=== PATIENT | female | born 1965 | race Caucasian/White ===

== ENCOUNTER 2017-09-16 18:46 | Emergency (ER) | payer OTHER ==
[2017-09-16] MEDS ORDERED: HYDROcodone/Acetaminophen 10/325 mg Tablet ONE (20:28)
[2017-09-16] MEDS ORDERED: Ibuprofen 800 MG TAB ONE (20:28)
--- NOTE | 2017-09-16 21:43 | RAD ---
LEFT FOREARM RADIOGRAPHS TWO VIEWS 09/16/17 PROVIDED CLINICAL HISTORY: Left arm pain. Status post injury. FINDINGS: There is a transversely oriented fracture of the mid shaft of the left ulna with displacement of the distal fragment about one half shafts width radially. No additional fracture is evident. Alignment ap pears otherwise anatomic. IMPRESSION: Displaced left ulnar fracture. POS: CET
--- NOTE | 2017-09-16 21:45 | CT ---
CT BRAIN 09/16/17 PROVIDED CLINICAL HISTORY: Head pain status post injury. FINDINGS: The ventricular system appears normal in size and morphology. There is no evidence for intracranial h emorrhage or mass effect. There is left frontal scalp swelling as well as a mucous retention cyst in the right maxillary sinus. The extracranial soft tissues and osseous structures appear otherwise unre markable. IMPRESSION: No evidence for intracranial hemorrhage or skull fracture. POS: CET
== END 2017-09-16 21:00 | disposition home or self-care (01) ==
LOC: MADERS 18:46
DX: S52.202A Unspecified fracture of shaft of left ulna, initial encounter for closed fracture (principal); S00.83XA Contusion of other part of head, initial encounter; I10 Essential (primary) hypertension; F17.210 Nicotine dependence, cigarettes, uncomplicated; V89.2XXA Person injured in unspecified motor-vehicle accident, traffic, initial encounter; W22.10XA Striking against or struck by unspecified automobile airbag, initial encounter
CPT/HCPCS: 70450